=== PATIENT | female | born 1960 | race Caucasian/White ===

== ENCOUNTER 2018-05-18 15:37 | Emergency (ER) | payer OTHER ==
[2018-05-18 16:00] VITALS: BP 144/92
[2018-05-18] MEDS ORDERED: MOTRIN PO ONE (16:42)
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
== END 2018-05-18 18:52 | disposition home or self-care (01) ==
LOC: ED 15:37
DX: S13.4XXA Sprain of ligaments of cervical spine, initial encounter (principal); S39.012A Strain of muscle, fascia and tendon of lower back, initial encounter; S00.83XA Contusion of other part of head, initial encounter; V89.2XXA Person injured in unspecified motor-vehicle accident, traffic, initial encounter; Y93.89 Activity, other specified; Y92.89 Other specified places as the place of occurrence of the external cause; Y99.8 Other external cause status
CPT/HCPCS: 70450; 70486; 72100; 72125; 99284

== ENCOUNTER 2019-07-26 14:17 | Emergency (ER) | payer OTHER ==
[2019-07-26 14:39] VITALS: BP 133/80
[2019-07-26 16:19] LABS: Bilirubin,Urine NEG (Negative); Blood,Urine NEG (Negative); Color,Urine Yellow (Yellow); Mucus,Urine FEW /HPF; Protein,Urine <15 mg/dL mg/dL (Negative); Urobilinogen,Urine < 2.0 mg/dL (<2.0)
--- NOTE | 2019-07-26 18:24 | Emergency Department Report ---
ED Female HPI - General Chief complaint: Urogenital-Female Stated complaint: BLADDER ISSUES Time Seen by Provider: 07/26/19 17:11 Source: patient Mode of arrival: Ambulatory Limitations: No Limitations - History of Present Illness Initial comments: Patient is a 59-year-old female presents to emergency room with complaints of vaginal pain that began a couple days ago. States she feels like her "bladder is prolapsed and sees a ball when she examined herself." States she has associated pressure with urination, discomfort with walking, discomfort with coughing. She denies any dysuria, urinary retention, vaginal discharge, nausea, vomiting, diarrhea, fever. states she last saw BRUSHER WARP last year and did not have any issues at that time. - Related Data Previous Rx's Medication Instructions Recorded Last Taken Type Cyclobenzaprine [Flexeril] 10 mg PO BID PRN #14 tablet 05/18/18 Unknown Rx Ibuprofen [Motrin] 600 mg PO Q8H PRN #30 tablet 05/18/18 Unknown Rx Allergies Allergy/AdvReac Type Severity Reaction Status Date / Time No Known Allergies Allergy Unverified 05/18/18 16:00 ED Review of Systems ROS: Stated complaint: CHEST PAIN/BLADDER ISSUES Other details as noted in HPI Comment: All other systems reviewed and negative ED Past Medical Hx - Past Medical History Previous Medical History?: No Additional medical history: gastritis - Surgical History Past Surgical History?: No - Social History Smoking Status: Never Smoker Substance Use Type: None - Medications Home Medications: Home Medications Medication Instructions Recorded Confirmed Last Taken Type Cyclobenzaprine [Flexeril] 10 mg PO BID PRN #14 tablet 05/18/18 Unknown Rx Ibuprofen [Motrin] 600 mg PO Q8H PRN #30 tablet 05/18/18 Unknown Rx ED Physical Exam - General Limitations: No Limitations General appearance: alert, in no apparent distress - Head Head exam: Present: atraumatic, normocephalic - Eye Eye exam: Present: normal appearance - ENT ENT exam: Present: mucous membranes moist - GI/Abdominal GI/Abdominal exam: Present: soft, normal bowel sounds. Absent: distended, tenderness, guarding, rebound, rigid - Speculum exam: Present: other (appears to have bladder prolapse present in the anterior vaginal wall, industrial energy engineer: sarthak herndon). Absent: erythema, vaginal discharge, cervical discharge, vaginal bleeding, tissue - Neurological Exam Neurological exam: Present: alert, oriented X3 - Psychiatric Psychiatric exam: Present: normal affect, normal mood - Skin Skin exam: Present: warm, dry, intact ED Course Vital Signs 07/26/19 14:36 Temperature 98.6 F Pulse Rate 82 Respiratory 18 Rate Blood Pressure 133/80 O2 Sat by Pulse 100 Oximetry ED Medical Decision Making - Medical Decision Making Patient is a 59-year-old female presents to emergency room with complaints of vaginal pain that began a couple days ago. States she feels like her "bladder is prolapsed and sees a ball when she examined herself." States she has associated pressure with urination, discomfort with walking, discomfort with coughing. She denies any dysuria, urinary retention, vaginal discharge, nausea, vomiting, diarrhea, fever. states she last saw BRUSHER WARP last year and did not have any issues at that time. VSS. on exam: appears to have bladder prolapse present in the anterior vaginal wall, industrial energy engineer: sarthak herndon. discussed with pt to please follow up with a urologist in the next 2-3 days. return to the emergency room for any new or worsening symptoms. radha for somali interpretation - Differential Diagnosis uterine prolapse, UTI, bladder prolapse, rectal prolapse Critical care attestation.: If time is entered above; I have spent that time in minutes in the direct care of this critically ill patient, excluding procedure time. ED Disposition Clinical Impression: Bladder prolapse Disposition: DC-01 TO HOME OR SELFCARE Is pt being admited?: No Does the pt Need Aspirin: No Condition: Stable Additional Instructions: Please follow up with a urologist in the next 2-3 days. return to the emergency room for any new or worsening symptoms. bradly un seguimiento con un urlogo en los prximos 2-3 rodriguez. regresar a la julius de emergencias por cualquier sntoma nuevo o que empeore Referrals: MELODIE ADLER MD [Staff Physician] - 2-3 Days Forms: Work/School Release Form(ED) Time of Disposition: 18:25 Print Language: CHINESE
== END 2019-07-26 19:10 | disposition home or self-care (01) ==
LOC: ED 14:17
DX: N81.10 Cystocele, unspecified (principal); Z87.19 Personal history of other diseases of the digestive system; Z79.899 Other long term (current) drug therapy
CPT/HCPCS: 81001